=== PATIENT | female | born 2000 | race Caucasian/White ===

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

== ENCOUNTER 2019-11-12 17:09 | Emergency (ER) | payer MEDICAID, SELFPAY ==
[2019-11-12 17:10] VITALS: BP 126/85; PULSE 94; RESP 16; TEMP 36.3; O2SAT 99; BMI 24.7
[2019-11-12] MEDS: 0.9% Normal Saline 1,000 ML 1000 ML IV (17:50)
[2019-11-12] MEDS: Ketorolac 30 MG/ML Syringe IV (17:55)
[2019-11-12] MEDS: Metoclopramide 10 MG/2 ML Vial IV (17:55)
[2019-11-12] MEDS: DiphenhydrAMINE 50 MG/ML Syringe 25 MG IV (17:55)
--- NOTE | 2019-11-12 19:04 | ED.VISSUMM ---
- ER Visit Summary Date of Service: 11/12/19 Chief Complaint: [Headache] History of Present Illness: The patient is a 18 F [presents to the emergency department complaint of a headache that started between 2 and 3 PM today. Patient states the pain came on rather suddenly and she describes it as a pressure and throbbing behind her eyes. She has had photophobia with it and nausea with it. Patient states that she has had 1 other migraine and it seems similar. Patient's last menstrual period was 1 week ago. She denies any falls or head injuries. She denies recent illness. No family history of brain tumors or aneurysms. Patient currently rates the headache an 8 out of 10.] Physical Examination: [HEENT-PERRLA, EOMI. Cranial nerves II through XII grossly intact. TMs clear. Mucous membranes moist. No adenopathy. Cardiovascular-regular rate and rhythm without murmur or ectopy Lungs-clear to auscultation, chest wall stable without crepitus or subcu emphysema Abdomen-normoactive bowel sounds, soft, nontender, no rebound or rigidity, no peritoneal signs. Neuro uwfy-bcsiig-vq-nose and nuur-yc-yakv testing within normal limits, negative Romberg, negative for drift, fundi benign Extremities-intact ?4, normal range of motion, normal pulses, atraumatic] Test Results: [None indicated] Emergency Department Course and Treatment: [Patient was given a liter normal saline fluid bolus followed by Reglan, Benadryl, and Toradol IV. Patient's headache resolved.] Treatment Plan: [Patient to follow-up with primary care physician in 3 to 5 days.] Disposition: [Discharged home in stable condition] Impression: [Migrainous cephalgia-resolved] This note was generated with [employer] software. It may contain incorrect words, spelling, and punctuation that were not noted in review of the chart prior to signing ED Disposition - Plan for ED Patient: Referrals: Henrietta Menendez DO [Primary Care Provider] -
--- NOTE | 2019-11-12 19:07 | ED.DEP ---
ED Disposition - Plan for ED Patient: Instructions: ED, Migraine (Classical) Referrals: Henrietta Menendez DO [Primary Care Provider] - 3-5 Days
[2019-11-12 19:16] VITALS: BP 105/68; PULSE 92; RESP 18; O2SAT 97
== END 2019-11-12 19:30 | disposition home or self-care (01) ==
LOC: ED 18:07
PROVIDERS: Emergency Provider Emergency Medicine; PCP Family Medicine
DX: G43.909 Migraine, unspecified, not intractable, without status migrainosus (principal); Z72.0 Tobacco use
CPT/HCPCS: 96361; 96374; 96375; 99283; J7030; A4216

== ENCOUNTER 2022-08-13 16:56 | Emergency (ER) | payer MEDICAID, SELFPAY ==
[2022-08-13 16:58] VITALS: BP 106/71; PULSE 89; RESP 16; TEMP 35.9; O2SAT 100; BMI 33.8
--- NOTE | 2022-08-13 17:15 | ED.VIS.DENTA ---
HPI History of Present Illness Chief Complaint: Dental Detail of Chief Complaint: Dental pain Informant: patient Onset/Context/Timing Onset: Today (Earlier this morning) Context: Sudden Onset Timing: Intermittent Quality: Pain Location: Tooth #31 Current Severity: Mild Maximum Severity: Moderate Worsened by: Chewing Associated Symptoms Assocated Symptom - Dental: Negative for fever, jaw swelling, face swelling, cold sensitivity or hot sensitivity Narrative Narrative: Patient is a 21-year-old female who is 32 weeks gestation who presents with dental pain that started this morning. She denies intolerance to hot or cold liquids. She denies fever, chills night sweats. She denies history of medic fever, heart murmur, SBE or being immune suppressed. She denies difficulty opening closing her mouth. She denies drooling. Denies change in voice. She denies rash. Denies facial swelling. Prior similar symptoms: Yes Recent Illness/Hospitalization: No PFSH PFSH Medical History no medical history no medical history Home Medications amoxicillin 500 mg tablet 500 mg PO TID #21 tabs 08/13/22 [Rx Last Taken Unknown] hydrocodone-acetaminophen 5-325mg 5mg-325mg 1 tab PO Q6H PRN PRN Pain 3 days #10 TABLETS 08/13/22 [Rx Last Taken Unknown] Allergy/AdvReac Type Severity Reaction Status Date / Time No Known Allergies Allergy Verified 08/13/22 16:57 Surgical History no surgical history no surgical history Social History (Updated 08/13/22 @ 17:[address] Sean Archuleta MD) household members: significant other Smoking Status: Current every day smoker tobacco type: cigarettes substance use type: does not use ROS ROS ED Constitutional Constitutional ED: Denies chills, fever(s), subjective, sweats or weight loss Eyes Eyes: Denies blurry vision, change in vision or other ENT ENT ED: Denies ear pain, rhinorrhea or sore throat Cardiovascular Cardiovascular: Denies chest pain, palpitations or racing heartbeat Gastrointestinal Gastrointestinal: Denies nausea or vomiting Musculoskeletal Musculoskeletal: Denies arthralgias, back pain, myalgias or neck pain Integumentary Denies abscess or rash Neurologic Neurologic: Denies headache(s), paresthesias or weakness Allergic/Immunologic Allergic/Immunologic ED: Denies mouth swelling, tongue swelling or urticaria EXAM Physical Exam Const Vital Signs: 08/13/22 16:58 Temperature 96.7 F L Temperature Source Temporal Pulse Rate 89 Respiratory Rate 16 Blood Pressure 106/71 Blood Pressure Mean 82 Pulse Ox 100 Oxygen Delivery Method Room Air Positive well nourished and well developed General Appearance ED: well developed and NAD HEENT HEENT Narrative: Head is atraumatic no cephalic. Ears normal. Nares patent. Patient does have a piercing of her nose. Patient has significant dental pathology with multiple dental caries, gingivitis, periodontal disease and evidence of mild pericoronitis. There is localized inflammation around tooth #31. There is an aphthous ulcer noted roof of the mouth. There is no trismus. There is no evidence of Ludewig's angina. Face and Sinus: Negative for sinuses nontender Mouth ED: Yes oral and palatal mucosa normal, Yes lips normal and Yes tongue normal Mouth: oral and palatal mucosa normal, lips normal and tongue normal Eyes PERRL and EOMs intact bilaterally General Eye ED: Negative for pale conjunctiva or scleral icterus Neck no lymphadenopathy, supple and no JVD Neck Narrative: Trachea is midline. There is no inspiratory or. General: normal visual inspection; Negative for anterior neck swelling, tenderness or submandibular swelling Lymph Lymphatic: no lymphadenopathy noted Resp normal respiratory effort, no retractions and clear to auscultation bilaterally Cardio regular rate, regular rhythm, S1 normal heart sound, S2 normal heart sound and no murmurs Neuro oriented x3, CN's II-XII intact bilaterally and moves all extremities Psych mental status grossly normal Skin no rashes or lesions noted and no wounds MDM MDM MDM Narrative Medical decision making narrative: Patient with dental caries. She probably has an apical abscess. Since she is she was placed on amoxicillin and opiate analgesia. Since she is in her third trimester NSAIDs are contraindicated. As instructed follow-up with dentist as soon as she delivers. Discharge Plan Triage Chief Complaint: Dental ED Provider: Provider,Ed Physician Dx/Rx/DC Orders Clinical Impression: Abscess, dental, Dental caries extending into pulp, Dental caries extending into dentine, Pericoronitis, Gingivitis, Gingival and periodontal disease Instructions: Dental Abscess Prescriptions: New hydrocodone-acetaminophen [hydrocodone-acetaminophen] 5-325 mg tablet 1 tab PO Q6H PRN PRN (Reason: Pain) 3 Days Qty: 10 0RF amoxicillin 500 mg tablet 500 mg PO TID Qty: 21 0RF Primary Care Provider: Care Physician,No Primary Referrals: Care Physician,No Primary [Primary Care Provider] - Dentist,Your [STAFF PHYSICIAN] - 1-2 Weeks Activity Restrictions/Additional Instructions: Return if you have change in voice, inability to open and close her mouth fully or drooling. Disposition Disposition: Home, Self Care
[2022-08-13] MEDS: HYDROcodone Bitartrate/Apap 5/325 Tablet PO (17:28)
[2022-08-13] MEDS: AMOXICILLIN 500 MG CAPSULE PO (17:29)
== END 2022-08-13 17:33 | disposition home or self-care (01) ==
PROVIDERS: Emergency Provider Emergency Medicine; Visit Provider Emergency Medicine
DX: O99.613 Diseases of the digestive system complicating pregnancy, third trimester (principal); F17.210 Nicotine dependence, cigarettes, uncomplicated; K04.7 Periapical abscess without sinus; Z3A.32 32 weeks gestation of pregnancy; O99.333 Smoking (tobacco) complicating pregnancy, third trimester; K02.9 Dental caries, unspecified
CPT/HCPCS: 99283